=== PATIENT | female | born 1990 | race Caucasian/White ===

== ENCOUNTER 2023-10-10 15:16 | Emergency (ER) | payer OTHER, SELFPAY ==
[2023-10-10 15:24] VITALS: BP 124/89
[2023-10-10 15:45] LABS: % Basophils 0.5 % (0-2); % Eosinophils 1.2 % (0-6); % Immature Granulocytes 0.2 % (0-0.5); % Monocytes 5.2 % (1.7-9.3); % Neutrophils 59.9 % (42.2-75.2); Absolute Eosinophils 0.1 10^3/uL (0-0.7); Absolute Lymphocytes 2.7 10^3/uL (1.2-3.4); Absolute Monocytes 0.4 10^3/uL (0.1-0.6); Absolute Neutrophils 4.9 10^3/uL (1.4-6.5); Hematocrit 35.6 % (37.0-47.0); Hemoglobin 12.4 g/dL (12.0-16.0); Mean Corp Hgb Conc. 34.8 g/dL (33.0-37.0); Mean Corpuscular Volume 83.2 fL (81.0-99.0); Mean Platelet Volume 9.1 fL (7.4-10.4); Nucleated Red Blood Cells % 0 %; Platelet Count 364 10^3/uL (130-400); Red Blood Cell Count 4.28 10^6/uL (4.20-5.40); Red Cell Dist. Width 12.9 % (11.5-14.5); White Blood Cell Count 8.2 10^3/uL (4.8-10.8)
[2023-10-10 16:13] LABS: ALT (SGPT) 15 U/L (0-35); AST (SGOT) 18 U/L (14-36); Albumin 4.6 g/dl (3.5-5.0); Alkaline Phosphatase 56 U/L (38-126); Blood Urea Nitrogen 15 mg/dl (7-17); Calcium 9.5 mg/dl (8.4-10.2); Carbon Dioxide 23 mmol/L (22-30); Chloride 105 mmol/L (98-107); Glucose 96 mg/dl (70-99); Potassium 3.8 mmol/L (3.5-5.1); Sodium 138 mmol/L (135-145); Total Bilirubin 0.9 mg/dl (0.2-1.3); Total Protein 7.6 g/dl (6.3-8.2); eGFR > 60.00
[2023-10-10 19:42] LABS: HCG, Serum Qualitative Screen Negative
[2023-10-10 20:23] VITALS: BP 119/87
[2023-10-10] MEDS: NSS 1000 IV (20:28)
--- NOTE | 2023-10-10 20:41 | ED.GENMED ---
History of Present Illness
General
Chief Complaint: Vaginal Bleeding
Source: patient
Exam Limitations: none
Time Seen by Provider: 10/10/23 20:07
Travel History
Have you had any contact with someone who has COVID-19?: No
Do you have any symptoms of coronavirus? Fever > 100 degrees, chills, cough, shortness of breath, sore throat, loss of taste or smell, muscle aches, or headache?: No
History of Present Illness
History of Present Illness:
This is a 33 year old female that comes in with c/o heavy vaginal bleeding. States that she has been bleeding for the past 28 days. Staes that she had a normal period on Sep 13. States that this stopped for about 1-2 days on the and . Then
on the she started to bleed again and felt that there was yellowish discharge with the bleeding. State that on Oct 03 she went to see her [facility] and she was given Medroxyprogesterone 10mg which she started on Oct 05. States that she never
stopped bleeding, and on Tuesday she had large clots with the bleeding. States that she called the [facility] today and she was told that she may need a D&C to come to the ER for evaluation. States that she has occasional SOB, abd pain, nausea, diarrhea
yesterday, headache and she is not dizzy but just feels uneasy. Denies any fever, chills, chest pain, vomiting, urinary burning.
Past History
Past History
ED Past Medical History: Psychiatric (Anxiety, ) and Other (ADHD, )
ED Past Surgical History: Tonsilectomy
Social History
Tobacco: Non-smoker
Alcohol: Occasional
Personal: Single
Living: with family
Review of Systems
Review of Systems
All Other Systems: ROS reviewed and negative except as documented in HPI and ROS
Constitutional: Reports no symptoms; Denies fever or chills
EENT: Reports no symptoms
Respiratory: Reports trouble breathing (occasional slight)
Cardiac: Reports no symptoms; Denies chest pain
ABD/GI: Reports abdominal pain, nausea and diarrhea (Yesterday); Denies vomiting
: Reports bleeding (heavy vaginal bleeding); Denies dysuria, frequency or urgency
Musculoskeletal: Reports no symptoms
Skin: Reports no symptoms
Neurological: Reports headache and other (Just feels uneasy); Denies dizzy
Psychiatric: Reports no symptoms
Phy Exam
General Physical Exam
General Presentation: well appearing and no apparent distress
General age: appears stated age
General Skin: warm and dry
General Habitus: normal
General Mental: alert
General Hydration: appears well hydrated
ENT Exam
ENT Exam: TM's normal, pharynx normal and neck supple
Eye Exam
Eye Exam: EOMI
Cardiovascular Exam
Cardiovascular Exam: regular rate/rhythm, no edema, no murmur and normal peripheral pulses
Pulmonary Exam
Pulmonary Exam: lungs clear, no respiratory distress, no rales, chest non tender, no crackles, no rhonchi, no wheezing and no cough
Gastrointestinal Exam
Gastrointestinal Exam: normal bowel sounds, soft, no organomegaly, no pulsatile mass, non distended and tender (Slight lower and epigastric tenderness with palpation)
Genitourinary Exam Female
Vaginal Bleeding: moderate
Musculoskeletal Exam
Musculoskeletal Exam: full ROM and no edema
Skin Exam
Skin Exam: normal color, warm/dry, no rash and no petechia
Psychiatric Exam
Psychiatric Exam: normal mood/affect
Course
Orders/Labs/Results
Orders:
Orders
10/10/23 15:36
CMP [Comprehensive Metabolic Panel] Urgent
Complete Blood Count/With Diff Urgent
HCG, Serum Qualitative Screen Urgent
Comment: ADD ON
10/10/23 18:33
Add On- LAB Urgent
Tests Added?: hcg qual
10/10/23 20:28
0.9% Sodium Chloride 1000 ml [Nss] 1,000 ml IV BOLUS
10/10/23 20:31
US Pelvis W Transvag Combined Urgent
Reason For Exam: abnormal vaginal bleeding
Abnormal Lab Results
10/10/23
15:36
Hct 35.6 L %
(37.0-47.0)
10/10/23 15:36
10/10/23 15:36
labs unremarkable. HCG negative.
Vital Signs
Initial and Last Documented VS:
Initial Vital Signs
Temp Pulse Resp BP Pulse Ox
98.0 F 86 18 124/89 95
10/10/23 15:24 10/10/23 15:24 10/10/23 15:24 10/10/23 15:24 10/10/23 15:24
Last Documented Vital Signs
Temp Pulse Resp BP Pulse Ox
98.0 F 68 18 121/87 99
10/10/23 15:24 10/10/23 22:39 10/10/23 22:39 10/10/23 22:39 10/10/23 22:39
MDM/Problems Addressed
Differential Diagnosis Includes:
Uterine fibroid, Abnormal vaginal bleeding
MDM/Problems Addressed:
This is a 33 year old female that comes in with c/o abnormal vaginal bleeding. states that this started after she had a normal period in Sep and she has been bleeding for the past 28 days.
Will check labs and get Ultrasound
back into see patient. Reviewed labs and Ultrasound report. Explained to patient that she need to see the [facility]. States that she has an appointment with her tomorrow at 8am. Explanied that she will also need an out patient MRi as there may be a
dermoid cyst in the left adnexal region. Patient to increase her water intake and return with any concerns.
Chronic conditions affecting care:
NA
Acute Exacerbation and/or Progression of Chronic Illness:
NA
*Radiology
Radiology exam reviewed: radiology read reviewed (US- limited study with only endovaginal imaging able to be obtained. heterogeneous appearance of 'thickened' endometrium in this apparent premenopausal patient extending into the endocervical canal
measuring up to 3cm. As the beta HCG level is apparently negative, some of several other etiologies ), all reviewed NAD by ED Provider (US cont- include medication related, atypical endometrial/endocervical polyp or other endometrial mass.
Unremarkable right ovary. Left ovary not definitively visualized, Possible complex mass of approximately 6cm in the left adnexal region. One differential diagnostic possibility would be a dermoid.) and other (US conc- Recommend MRI for more complete
evaluation. )
*Pulse Oximetry
Patient hypoxic: no
*EKG
Interpreted by ED Provider?: NA
Rate: EKG- N/A
*Quality Control Tester Interpretation
Rate: Quality Control Tester- N/A
*Critical Care Note
Total Time (30-74mins, 75-104mins- exclusive of procedures): Not Applicable
ED Attending Note
-
Portions of this chart may have been created with voice recognition software.� Occasional wrong word or��sound alike� substitutions may have occurred due to the inherent limitations of voice recognition software.
Discharge Plan
Departure
Patient Disposition: Home (Routine Discharge)
Date of Disposition: 10/10/23
Time of Disposition: 23:28
Patient with high blood pressure during this ER visit?: No
Condition: Good
Covid-19: Not Applicable
Discharge Problem:
Abnormal vaginal bleeding
Instructions: Bleeding Between Periods
Referrals:
Fredy Bernstein MD [Family Provider] -
Activity Restrictions/Additional Instructions:
As discussed, your blood work is all normal. Your US shows a thickened endometrium and a possible Dermoid in the left adnexa. This will need further evaluation with MRI. Please follow up with the [facility] as scheduled. IF YOU HAVE ANY OTHER CONCERNS
PLEASE RETURN TO THE EMERGENCY ROOM.
Interventions
Interventions:
*Risk Screen - Suicide Last Done: 10/10/23 20:16
*General Assessment Last Done: 10/10/23 20:16
*Neglect/Abuse Screening Last Done: 10/10/23 20:16
*ED COVID-19 Vaccine History Last Done: 10/10/23 20:16
ED-Female Genitourinary Assessment Last Done: 10/10/23 20:16
[2023-10-10 22:39] VITALS: BP 121/87
[2023-10-10 23:30] VITALS: BP 111/72
== END 2023-10-10 23:30 | disposition home or self-care (01) ==
LOC: EMR 15:16
PROVIDERS: Emergency Medicine; EMERGENCY PHYSICIAN Emergency Medicine; FAMILY PHYSICIAN Internal Medicine
DX: N93.9 Abnormal uterine and vaginal bleeding, unspecified (principal)
CPT/HCPCS: 99284; 96360; 76830; 76856; 80053; 84703; 85025